=== PATIENT | female | born 1930 | race Caucasian/White ===

== ENCOUNTER 2018-06-12 17:56 | Inpatient (IN) | payer MEDICARE ==
[~2018-06-12] VITALS: Ht 160 cm; Wt 93.9 kg
--- NOTE | ~2018-06-12 | HEMODYNAMI ---
PATIENT:DUC SOLANO MEDICAL RECORD: [id number] : 34 LOCATION:[address] ADMISSION DATE: 06/12/18 Generatedon:06/13/201811:18 Patient name: DUC SOLANO Patient #: [id number] SSN: : 1930 Date of study: 06/13/2018 Page: Of Hemodynamic Procedure Report Patient Data Patient Demographics Procedure consent was obtained First Name: DUC Gender: Female Last Name: RUSS : 1930 Patient #: [id number] Age: 88 year(s) Race: Unknown Additional ID: [id number] Contact details [address]: [address] [place] [address] State: [place] City: [place] Zip code: [address] Past Medical History Allergies: No known allergies Admission Admission Data Admission Date: 06/12/2018 Admission Time: 19:42 Room #: [facility] Weight (lbs.): 207.43 Weight (kg.): 94.09 Procedure Procedure Types Cath Procedure Diagnostic Procedure C [facility] w/Coronaries Sedation Charges Moderate Sedation up to 15 minutes PCI Procedure Coronary Stent Coronary Stent Initial x2 Procedure Description Procedure Date Procedure Date: 06/13/2018 Procedure Start Time: 10:54 Procedure End Time: 11:13 Procedure Staff Name Function Ashok Caballero MD Performing Physician Chris Reyes RT Monitor Kristal Mortensen RN Nurse Karla Collins RT Scrub Procedure Data Cath Procedure Fluoroscopy Diagnostic fluoroscopy Total fluoroscopy Time: 5.2 time: 5.2 min min Diagnostic fluoroscopy Total fluoroscopy dose: dose: 468.54 mGy 468.54 mGy Contrast Material Contrast Material Type Amount (ml) Isovue 300 109 Entry Location Entry Primary Successful Side Size Upsize Upsize Entry Closure Bradley ccessful Closure Location (Fr) 1 (Fr) 2 (Fr) Remarks Device Remarks Radial Right 6 Fr Mechanical artery Short Compression Estimated blood loss: 10 ml Diagnostic catheters Device Type Used For End Catheter Placement DIAGNOSTIC [place] 110cm 5 Procedure Fr catheter ([id number]) Procedure Complications No complications Procedure Medications Medication Administration Route Dosage Oxygen etCO2 Nasal cannula 3 l/min Lidocaine 2% added to field 20 Heparin Flush Bag added to field 2 bags (1000units/500ml NS) 0.9% NaCl I.V. 100 ml/hr Versed I.V. 1 mg Fentanyl I.V. 50 mcg Radial Cocktail I.A. 1 syringe (Verapomil 2mg/Nitro 400mcg/Heparin 1500units) Versed I.V. 1 mg Fentanyl I.V. 50 mcg Versed I.V. 1 mg Heparin Bolus I.V. 4000 units Plavix P.O. 75 mg Hemodynamics Rest Heart Rate: 56 (bpm) Snapshots Pre Cath Intra NCS Post Cath Vital Signs Time Heart Resp SPO2 etCO2 NIBP (mmHg) Rhythm Pain Sedation Rate (ipm) (%) (mmHg) Status Level (bpm) 10:36:13 64 12 91 0 135/75(123) NSR 0 (11) 9(A) , No pain 10:40:31 64 16 92 0 119/74(110) NSR 0 (11) 9(A) , No pain 10:44:57 66 14 95 0 132/73(100) NSR 0 (11) 9(A) , No pain 10:49:30 60 17 94 0 138/73(109) NSR 0 (11) 9(A) , No pain 10:54:02 65 14 92 0 125/79(112) NSR 0 (11) 9(A) , No pain 10:59:18 74 15 94 0 93/64(89) NSR 0 (11) 9(A) , No pain 11:03:36 82 18 94 0 109/65(86) NSR 0 (11) 9(A) , No pain 11:07:58 81 15 94 1.4 118/69(83) NSR 0 (11) 9(A) , No pain 11:12:24 76 16 94 1.4 122/72(95) NSR 0 (11) 9(A) , No pain Medications Time Medication Route Dose Verified Delivered Reason No bernie Effectiveness by by 10:41:43 Oxygen etCO2 3 l/min Ashok Giraldo used for Nasal Federico Mortensen RN procedure cannula 10:41:51 Lidocaine 2% added 20ml Ashok Bailonie for local to vial Federico Mortensen RN anesthetic field 10:42:02 Heparin Flush added 2 bags Ashok Pulido used for Bag to Federico Caballero MD procedure (1000units/500ml field NS) 10:43:44 0.9% NaCl I.V. 100ml/hr Ashok Giraldo Per physician Federico Mortensen RN 10:45:28 Versed I.V. 1 mg Ashok Giraldo for sedation Federico Mortensen RN 10:45:34 Fentanyl I.V. 50 mcg Ashok Giraldo for sedation Federico Mortensen RN 10:51:33 Versed I.V. 1 mg Ashok Giraldo for sedation Federico Mortensen RN 10:51:37 Fentanyl I.V. 50 mcg Ashok Giraldo for sedation Federico Mortensen RN 10:57:26 Radial Cocktail I.A. 1 Ashok Pulido for (Verapomil syringe Federico Caballero MD vasodilation 2mg/Nitro 400mcg/Heparin 1500units) 10:58:25 Versed I.V. 1 mg Ashok Pulido for sedation Federico Caballero MD 11:01:36 Heparin Bolus I.V. 4000 Ashok Giraldo for ve rified units Federico Mortensen RN anticoagulation with dr caballero 11:13:58 Plavix P.O. 75 mg Ashok Giraldo for Federico Mortensen RN antiplatelet therapy Procedure Log Time Note 9:57:53 Time tracking: Regular hours (M-F 7:00 - 5:00) 9:57:55 Kristal Mortensen RN sent for patient. Start room use. 9:58:02 Plan of Care:Hemodynamics will remain stable., Cardiac rhythm will remain stable., Comfort level will be maintained., Respiratory function will remain adequate., Patient/ family verbilizes understanding of procedure., Procedure tolerated without complication., Recovers from procedure without complications.. 10:00:13 Pt was sleeping upon arrival to room, nurse states pt has some confusion noted.Pt was easily arrousable with command. 10:15:26 Patient received from PCU to CCL 3 Alert and oriented. Tansferred to table in Supine position. 10:15:28 Warm blankets applied, and jose armando hugger turned on for patient comfort. 10:15:28 Correct patient and procedure confirmed by team. 10:15:29 Signed procedure consent form obtained from patient. 10:15:30 ECG and BP/O2 sat monitors applied to patient. 10:15:31 Full Disclosure recording started 10:34:55 Vital chart was started 10:34:57 Baseline sample Acquired. 10:35:01 Rhythm: sinus rhythm 10:36:27 H&P Date Dictated: 06/12/2018 Within 30 days and on chart., H&P Addendum completed by physician on day of procedure. (MUST COMPLETE FOR ALL OUTPATIENTS). 10:36:28 Pre-procedure instructions explained to patient. 10:36:29 Pre-op teaching completed and patient verbalized understanding. 10:36:31 Family in patients room. 10:36:32 Patient NPO since Midnight. 10:36:37 Patient allergic to No known allergies 10:36:39 Is the patient allergic to Iodine/contrast media? No. 10:36:40 Is patient on blood thinner?Yes 10:36:42 ACC The patient was administered the following blood thiners within the last 24 hours: ACCPlavix 10:36:44 Patient diabetic? Yes. 10:36:45 If diabetic: On Metformin? No 10:36:47 Previous problem with sedation/anesthesia? No ? 10:36:48 Snore? Yes 10:36:49 Sleep apnea? No 10:36:49 Deviated septum? No 10:36:50 Opens mouth fully? Yes 10:36:52 Sticks out tongue? Yes 10:36:54 Airway obstruction? No ? 10:36:56 Dentures? No ? 10:36:59 Modified Bay's test Ulnar < 7 seconds 10:37:00 Patient pain scale 0/10 ?. 10:37:03 IV patent on arrival in right antecubital with 0.9% NaCl at O. 10:40:11 Lab Result : Creatinine 0.9 mg/dl 10:40:11 Lab Result : BUN 24 mg/dl 10:40:11 Lab Result : Hemoglobin 12.8 g/dl 10:40:11 Lab Result : Hematocrit 38.9 % 10:40:17 Patient Weight : 207.43 lbs 10:40:24 Lab results completed and on chart. 10:40:28 Right Radial & Right Groin area was prepped with chlora-prep and draped in sterile fashion 10:40:28 Alarms reviewed by Makenzie N. 10:40:29 Sharps counted by scrub and verified by R.N. 10:40:30 Use device set Radial Dx or PCI 10:40:31 ACIST Syringe (26522) opened to sterile field. 10:40:36 Medline Cath Pack ([id number]) opened to sterile field. 10:40:37 Bag Decanter (2002S) opened to sterile field. 10:40:38 ACIST Hand Control (01979) opened to sterile field. 10:40:39 ACIST Manifold (40725) opened to sterile field. 10:40:39 Tegaderm 4 x 4 (1626W) opened to sterile field. 10:41:04 DIAGNOSTIC WIRE .035 260cm J wire (360645) opened to sterile field. 10:41:07 SHEATH 6FR Slender (83-9362) opened to sterile field. 10:41:43 Oxygen 3 l/min etCO2 Nasal cannula was administered by Kristal Mortensen RN; used for procedure; 10:41:51 Lidocaine 2% 20ml vial added to field was administered by Kristal Mortensen RN; for local anesthetic; 10:42:02 Heparin Flush Bag (1000units/500ml NS) 2 bags added to field was administered by Ashok Caballero MD; used for procedure; 10:43:44 0.9% NaCl 100ml/hr I.V. was administered by Kristal Mortensen RN; Per physician; 10:44:04 Physician arrived 10:44:04 --------ALL STOP TIME OUT------ 10:44:04 Final Timeout: patient, procedure, and site verified with staff and physician. All members of the team are in agreement. 10:44:06 Right Radial & Right Groin site verified by team. 10:44:09 Physical assessment completed. ASA score P 3 - A patient with severe systemic disease as per Ashok Caballero MD. 10:44:12 Sedation plan: IV Moderate Sedation Medication:Versed, Fentanyl 10:45:23 Zero performed for pressure channel P1 10:45:28 Versed 1 mg I.V. was administered by Kristal Mortensen RN; for sedation; 10:45:34 Fentanyl 50 mcg I.V. was administered by Kristal Mortensen RN; for sedation; 10:51:33 Versed 1 mg I.V. was administered by Kristal Mortensen RN; for sedation; 10:51:37 Fentanyl 50 mcg I.V. was administered by Kristal Mortensen RN; for sedation; 10:54:16 Procedure started. 10:54:20 Local anesthetic to right radial artery with Lidocaine 2% by Ashok Caballero MD.INITIAL ACCESS ONLY 10:56:12 A 6 Fr Short sheath was inserted into the Right Radial artery 10:57:17 A DIAGNOSTIC [place] 110cm 5 Fr catheter (244199) was advanced over the wire and used for Procedure. 10:57:26 Radial Cocktail (Verapomil 2mg/Nitro 400mcg/Heparin 1500units) 1 syringe I.A. was administered by Ashok Caballero MD; for vasodilation; 10:58:21 LV gram done using NIETO 10:58:23 Injector settings: Ml/sec: 5, Volume: 15, 10:58:25 Versed 1 mg I.V. was administered by Ashok Caballero MD; for sedation; 10:58:43 LV hemodynamics recorded. 10:58:47 EF : 50 % 10:58:49 LCA angiography performed. 10:59:50 CHOICE PT Extra Support 182cm wire ([id number]) opened to sterile field. 10:59:51 INFLATOR Merit BasixCompak (RB1867) opened to sterile field. 10:59:57 RCA angiography performed. 11:01:36 Heparin Bolus 4000 units I.V. was administered by Kristal Mortensen RN; for anticoagulation; verified with dr caballero 11:02:29 GUIDE 6FR AR 1.0 SH catheter ([id number]) opened to sterile field. 11:02:30 GUIDE 6FR XBLAD 3.5 catheter ([id number]) opened to sterile field. 11:02:33 Catheter removed. 11:02:42 6 Fr xblad 3.5 guide catheter was inserted over the wire 11:02:51 choice pt es wire advanced. 11:03:07 Wire advanced across lesion. 11:04:28 Place stent Inflation Number: 1 A INTEGRITY RX 2.75 x 14 stent ([id number]) was prepped and advanced across the Prox CX. The stent was deployed at 15 RUSSELL for 0:10 (min:sec). 11:05:09 Stent catheter was removed intact over wire. 11:05:10 Wire removed. 11:05:11 Guide catheter removed. 11:05:17 6 Fr ar 1 sh guide catheter was inserted over the wire 11:06:29 CHOICE PT ES wire advanced. 11:08:26 Inflate balloon Inflation number: 2 A INTEGRITY RX 2.5 x 18 stent ([id number]) was prepped and advanced across the Dist RCA, then inflated to 13 RUSSELL for 0:10 (min:sec). 11:08:39 Stent catheter was removed intact over wire. 11:09:59 Place stent Inflation Number: 1 A INTEGRITY RX 2.5 x 08 stent ([id number]) was prepped and advanced across the Dist RCA. The stent was deployed at 13 RUSSELL for 0:10 (min:sec). 11:11:22 Stent catheter was removed intact over wire. 11:11:23 Wire removed. 11:11:23 Guide catheter removed. 11:11:30 TR BAND Standard ([id number]) opened to sterile field. 11:11:38 Sheath removed intact; hemostasis achieved with Mechanical Compression to the Right Radial artery. 11:11:39 Procedure ended.(Physican Out) 11:12:30 Fluoroscopy time 05.20 minutes. 11:12:36 Fluoroscopy dose: 468.54 mGy 11:12:36 Flurop Dose total: 468.54 11:12:40 Contrast amount:Isovue 300 109ml. 11:12:41 Sharps counted by scrub and verified by R.N. 11:12:43 TR band inflated with 13cc of air. 11:12:44 Insertion/operative site no bleeding no hematoma. 11:12:52 Post right radial artery:stable, soft, clean and dry 11:12:52 Post Procedure Pulses reassessed and unchanged 11:12:56 Post-procedure physical assessment completed. ASA score P 3 - A patient with severe systemic disease as per Ashok Caballero MD. 11:12:59 Post procedure rhythm: unchanged. 11:13:01 Estimated blood loss: 10 ml 11:13:08 Patient needs reinforcement of post procedure teaching. 11:13:26 Procedure type changed to Cath procedure, Diagnostic procedure, LHC, LHC w/Coronaries, Sedation Charges, Moderate Sedation up to 15 minutes, PCI procedure, Coronary Stent, Coronary Stent Initial x2 11:13:46 Procedure and supply charges have been captured, reviewed, submitted and are correct. 11:13:48 Procedure Complication : No complications 11:13:49 Vital chart was stopped 11:13:50 See physician's report for complete and final results. 11:13:51 Report given to PCU. 11:13:53 Patient transfered to PCU with Stretcher. 11:13:55 Procedure ended. 11:13:55 Full Disclosure recording stopped 11:13:58 Plavix 75 mg P.O. was administered by Kristal Mortensen RN; for antiplatelet therapy; 11:14:03 End room use (Document Last) Intervention Summary Intervention Notes Time ActionType Lesion and Equipment Action# Pressure Duration Attributes Used 11:04:28 Place stent Prox CX INTEGRITY RX 1 15 00:10 2.75 x 14 stent ([id number]) 11:08:26 Inflate Dist RCA INTEGRITY RX 2 13 00:10 balloon 2.5 x 18 stent ([id number]) 11:09:59 Place stent Dist RCA INTEGRITY RX 1 13 00:10 2.5 x 08 stent ([id number]) Device Usage Item Name Manufacture Quantity Catalog Number Hospital Part Current Mini mal Lot# / Charge Number Stock Stock Serial# Code ACIST Acist 1 95212 380734 562083 389417 20 Syringe Medical (13475) Systems Inc Medline Cath Medline 1 [id number] 780520 97702 798762 5 Pack ([id number]) Bag Decanter Microtek 1 2001S 441514 10323 090774 5 (2001S) Medical Inc. ACIST Hand Acist 1 63791 454844 428873 680746 5 Control Medical (52653) Systems Inc ACIST Acist 1 39677 125401 262582 241170 5 Manifold Medical (93214) Systems Inc Tegaderm 4 x 3M 1 1626W 246198 727539 436934 5 4 (1626W) DIAGNOSTIC St Max 1 251042 967756 432313 508146 30 WIRE .035 260cm J wire (915906) SHEATH 6FR Terumo 1 [id number] 668451 774663 800722 5 Slender (80-1060) DIAGNOSTIC Terumo 1 40-0595 537484 291140 975622 5 [place] 110cm 5 Fr catheter (317239) CHOICE PT [place] 1 [id number] 172107 561992 168317 5 Extra Scientific Support 182cm wire ([id number]) INFLATOR Merit 1 CC4598 696747 035555 710699 15 [facility] Medical BasixCompak (MM5919) GUIDE 6FR AR Medtronic 1 [id number] 265030 38568 431724 1 1.0 SH catheter ([id number]) GUIDE 6FR Cardinal 1 01122059 547347 582260 091059 10 XBLAD 3.5 Health catheter (06107435) INTEGRITY RX Medtronic 1 [id number] 774072 057281 413858 5 [id number] 2.75 x 14 stent ([id number]) INTEGRITY RX Medtronic 1 [id number] 732833 166668 844776 5 [id number] 2.5 x 18 stent ([id number]) INTEGRITY RX Medtronic 1 [id number] 016979 388452 562821 5 [id number] 2.5 x 08 stent ([id number]) TR BAND Terumo 1 SEX80-CBE 809729 530270 278889 40 Standard ([id number]) Signature Audit [place]in[place] Stage Time Signature Unsigned Intra-Procedure 06/13/2018 Chris Reyes 11:18:15 AM RT(R) Signatures Monitor : Chris Reyes RT Signature : Date : Time : [place] [id number] [facility] [place] [address]
[2018-06-12 19:02] LABS: BASOPHILS 0.2 % (0-2); EOSINOPHILS 2.7 % (0-7); HEMATOCRIT 38.9 % (36.0-48.0); HEMOGLOBIN 12.8 g/dL (12-16); MCH 30.5 pg (26.0-34.0); MCHC 32.9 g/dL (31.0-37.0); MCV 92.6 fL (80.0-100.0); MEAN PLATELET VOLUME 9.7 fL (7.4-10.4); MONOCYTES 11.5 % (2-11); NEUTROPHILS 62.6 % (40-80); PLATELET COUNT 147 10x3/uL (130-400); RDW 13.4 % (11.5-14.5); WBC 5.5 10x3/uL (4.8-10.8)
[2018-06-12 19:20] LABS: ALBUMIN 3.3 g/dL (3.4-5.0); ALKALINE PHOSPHATASE 69 U/L (46-116); ALT (SGPT) 29 U/L (10-68); BILIRUBIN - TOTAL 0.42 mg/dL (0.2-1.3); CALC OSMOLALITY 282 mosm/kg (275-300); CALCIUM 8.3 mg/dL (8.5-10.1); CARBON DIOXIDE 27.5 mmol/L (21.0-32.0); CHLORIDE - SERUM 105 mmol/L (98-107); CREATININE - SERUM 0.9 mg/dL (0.6-1.3); GLUCOSE 98 mg/dL (74-106); POTASSIUM - SERUM 3.7 mmol/L (3.5-5.1); SODIUM 140 mmol/L (136-145); UREA NITROGEN 24 mg/dL (7-18); eGFR NON AFRICAN AMERICAN 63 mL/min (90-120)
[2018-06-12 19:34] LABS: CKMB 1.1 U/L (0.0-3.6); CREATINE KINASE 82 UL (21-215); PRO BNP 210 pg/mL (0-450); TROPONIN-I 0.034 ng/mL (0.000-0.060)
[2018-06-12 20:32] LABS: APPEARANCE CLEAR (CLEAR); BILIRUBIN NEGATIVE (NEGATIVE); COLOR YELLOW (YELLOW); GLUCOSE NEGATIVE (NEGATIVE); KETONE NEGATIVE (NEGATIVE); NITRITE NEGATIVE (NEGATIVE); PROTEIN NEGATIVE (NEGATIVE); SPECIFIC GRAVITY 1.025 (1.005-1.020); UROBILINOGEN NORMAL (NORMAL)
[2018-06-12] MEDS ORDERED: VITAMIN B-122500 MCG PO (22:33)
[2018-06-12] MEDS ORDERED: VITAMIN D3400 UNI1 PO (22:34)
[2018-06-12] MEDS ORDERED: ALDACTONE25 MG PO (22:34)
[2018-06-12] MEDS ORDERED: ACULAR 0.5 % OPH5 ML RIGHT EYE (22:35)
[2018-06-12] MEDS ORDERED: COREG12.5 MG PO (22:36)
[2018-06-12] MEDS ORDERED: OMEPRAZOLE20 M1 PO (22:36)
[2018-06-12] MEDS ORDERED: FISH OIL 1,0001 CA1 PO (22:37)
[2018-06-12] MEDS ORDERED: NEURONTIN 300300 MG PO (22:37)
[2018-06-12] MEDS ORDERED: METOPROLOL TART25 MG PO (22:38)
[2018-06-12] MEDS ORDERED: SYNTHROID125 MCG PO (22:40)
[2018-06-12] MEDS ORDERED: COZAAR100 MG PO (22:41)
[2018-06-12] MEDS ORDERED: PLAVIX75 MG PO (22:42)
[2018-06-12] MEDS ORDERED: VITAMIN B-121000 MCG SUBD (22:43)
[2018-06-12] MEDS ORDERED: ZOLOFT100 MG PO (22:44)
[2018-06-12 23:17] VITALS: BP 157/82; BMI 33.7
--- NOTE | 2018-06-12 23:40 | NUR ---
NEW ADMISSION ARRIVED FROM ER. LETHARGIC DOES WAKE UP BUT NOT FOR LONG PERIODS OF TIME. WHEN PATIENT IS AWAKE SHE IS VERY COMFUSED. DAUGTHER AT BEDSIDE. RESPIRATIONS ARE EVEN AND UNLABORED. NO S/S OF DISTRESS. NO C/O PAIN. WILL CPOC.
[2018-06-13] VITALS: BP 131/86
--- NOTE | 2018-06-13 00:12 | NUR ---
PATIENT REFUSED EKG.
[2018-06-13 00:36] LABS: CKMB 1.4 U/L (0.0-3.6); TROPONIN-I 0.036 ng/mL (0.000-0.060)
[2018-06-13 00:37] LABS: CREATINE KINASE < 21 UL (21-215)
[2018-06-13 04:00] VITALS: BP 124/68
[2018-06-13 06:26] LABS: BASOPHILS 0.2 % (0-2); EOSINOPHILS 2.5 % (0-7); HEMATOCRIT 37.7 % (36.0-48.0); HEMOGLOBIN 12.3 g/dL (12-16); IMMATURE GRANULOCYTES 0.2 % (0-5); LYMPHOCYTES 15.3 % (15-50); MCH 29.9 pg (26.0-34.0); MCHC 32.6 g/dL (31.0-37.0); MCV 91.7 fL (80.0-100.0); MEAN PLATELET VOLUME 9.7 fL (7.4-10.4); MONOCYTES 9.3 % (2-11); NEUTROPHILS 72.5 % (40-80); PLATELET COUNT 138 10x3/uL (130-400); RBC 4.11 10x6/uL (4.00-5.40); RDW 13.5 % (11.5-14.5); WBC 4.7 10x3/uL (4.8-10.8)
[2018-06-13 06:59] LABS: ALBUMIN 3.1 g/dL (3.4-5.0); ALKALINE PHOSPHATASE 64 U/L (46-116); ALT (SGPT) 28 U/L (10-68); BILIRUBIN - TOTAL 0.41 mg/dL (0.2-1.3); CALC OSMOLALITY 289 mosm/kg (275-300); CALCIUM 8.5 mg/dL (8.5-10.1); CARBON DIOXIDE 26.4 mmol/L (21.0-32.0); CHLORIDE - SERUM 108 mmol/L (98-107); CKMB 1.4 U/L (0.0-3.6); CREATINE KINASE 105 UL (21-215); CREATININE - SERUM 0.9 mg/dL (0.6-1.3); GLUCOSE 98 mg/dL (74-106); POTASSIUM - SERUM 3.9 mmol/L (3.5-5.1); PROTEIN - SERUM 6.5 g/dL (6.4-8.2); SODIUM 144 mmol/L (136-145); TROPONIN-I 0.038 ng/mL (0.000-0.060); UREA NITROGEN 20 mg/dL (7-18); eGFR NON AFRICAN AMERICAN 63 mL/min (90-120)
--- NOTE | 2018-06-13 07:20 | NUR ---
ASSESSMENT DONE. DENIES NEEDS.
[2018-06-13 08:08] VITALS: BP 146/58
--- NOTE | 2018-06-13 10:10 | NUR ---
TO GAME PROTECTOR PER BED
--- NOTE | 2018-06-13 10:14 | NUR ---
RESTS IN BED WITH EYES CLOSED. FAMILY MEMBER AT BS. CALL LIGHT IN REACH.
[2018-06-13 12:56] VITALS: Ht 160 cm; Wt 93.9 kg
--- NOTE | 2018-06-13 13:18 | MORECARE ---
CASE MANAGEMENT DISCHARGE SUMMARY PATIENT: DUC SOLANO UNIT: [id number] ADM DATE: 06/12/18 AGE: 88 : 32 SEX: F ROOM/BED: D.2120 AUTHOR: LYNETTE VASQUEZ PHYSICIAN: REFERRING PHYSICIAN: DICK ROSADO MD DATE OF SERVICE: 06/13/18 Discharge Plan Patient Name: DUC SOLANO Facility: [facility]:[place] : 1930 Planned Disposition: Anticipated Discharge Date: Discharge Date: Expected LOS: Initial Reviewer: [email or web address] Initial Review Date: 06/12/2018 Generated: 06/13/18 2:18 pm Patient Name: DUC SOLANO Page 98365 at 1318 All edits/amendments must be made on the electronic document DICTATION DATE: 06/13/18 1317 NON ACOUSTIC OPERATOR: GABRIELLE 06/13/18 1317 RPT#: [id number] DC DATE: STATUS: ADM IN [facility] [address] [place] [address] END OF REPORT
--- NOTE | 2018-06-13 16:13 | MORECARE ---
CASE MANAGEMENT DISCHARGE SUMMARY PATIENT: DUC SOLANO UNIT: [id number] ADM DATE: 06/12/18 AGE: 88 : 32 SEX: F ROOM/BED: D.2120 AUTHOR: LYNETTE VASQUEZ PHYSICIAN: REFERRING PHYSICIAN: DICK ROSADO MD DATE OF SERVICE: 06/13/18 Discharge Plan Patient Name: DUC SOLANO Facility: [facility]:[place] : 1930 Planned Disposition: Home with Home Health Anticipated Discharge Date: 06/06/18 Discharge Date: Expected LOS: -6 Initial Reviewer: [email or web address] Initial Review Date: 06/12/2018 Generated: 06/13/18 5:13 pm Last DP export: 06/13/18 12:18 p Patient Name: DUC SOLANO Page 53639 at 1613 All edits/amendments must be made on the electronic document DICTATION DATE: 06/13/181612 [employer]CHO[employer] REGISTRAR: GABRIELLE 06/13/18 161 RPT#: [id number] DC DATE: STATUS: ADM IN [facility] [address] [place] [address] END OF REPORT
[2018-06-13 16:14] VITALS: BP 121/58
--- NOTE | 2018-06-13 16:20 | MORECARE ---
CASE MANAGEMENT DISCHARGE SUMMARY PATIENT: DUC SOLANO UNIT: [id number] ADM DATE: 06/12/18 AGE: 88 : 32 SEX: F ROOM/BED: D.2120 AUTHOR: LYNETTE VASQUEZ PHYSICIAN: REFERRING PHYSICIAN: DICK ROSADO MD DATE OF SERVICE: 06/13/18 Discharge Plan Patient Name: DUC SOLANO Facility: [facility]:[place] : 1930 Planned Disposition: Home with Home Health Anticipated Discharge Date: 06/06/18 Discharge Date: Expected LOS: -6 Initial Reviewer: [email or web address] Initial Review Date: 06/12/2018 Generated: 06/13/18 5:20 pm DCPIA - Discharge Planning Initial Assessment Updated by [email or web address]: Matt Yang on 06/13/18 4:15 pm * Is the patient Alert and Oriented? Yes * How many steps to enter\exit or inside your home? NONE * PCP DR. SOPHIE VELÁSQUEZ , [place], [place]. * Pharmacy [facility] * Preadmission Environment Home with Family * ADLs Independent * Equipment Back Brace Cane Walker Wheelchair * Other Equipment [facility] [place]. MEDICAL EQUIPMENT PROVIDER * List name and contact numbers for known caregivers / representatives who currently or will assist patient after discharge: SUE GOLD, JESSICAR, * Verbal permission to speak to the caregivers and representatives has been obtained from the patient. Yes * Community resources currently utilized Home Health * Please name any agencies selected above. [facility] - [phone] * Additional services required to return to the preadmission environment? No * Can the patient safely return to the preadmission environment? Yes * Has this patient been hospitalized within the prior 30 days at any hospital? No Last DP export: 06/13/18 3:13 p Patient Name: DUC SOLANO Page 83561 at 1620 All edits/amendments must be made on the electronic document DICTATION DATE: 06/13/18 1620 COFFEE ROASTER HELPER: GABRIELLE 06/13/18 1620 RPT#: [id number] DC DATE: STATUS: ADM IN [facility] [address] [place] [address] END OF REPORT
--- NOTE | 2018-06-13 16:28 | MORECARE ---
CASE MANAGEMENT DISCHARGE SUMMARY PATIENT: DUC SOLANO UNIT: [id number] ADM DATE: 06/12/18 AGE: 88 : 32 SEX: F ROOM/BED: D.7950 AUTHOR: PEDRO,DOC PHYSICIAN: REFERRING PHYSICIAN: DICK ROSADO MD DATE OF SERVICE: 06/13/18 Discharge Plan Patient Name: DUC SOLANO Facility: [facility]:[place] : 1930 Planned Disposition: Home with Home Health Anticipated Discharge Date: 06/06/18 Discharge Date: Expected LOS: -6 Initial Reviewer: [email or web address] Initial Review Date: 06/12/2018 Generated: 06/13/18 5:28 pm Comments DCP- Discharge Planning Updated by [email or web address]: Matt Yang on 06/13/18 3:[address] Patient Name: DUC SOLANO Admission Status: ER Accout number: [id number] Admission Date: 06-12-2018 : 1930 Admission Diagnosis: Attending: ALONZO, Current LOS: 1 Anticipated DC Date: 06-06-2018 Planned Disposition: Home with Home Health Primary Insurance: MEDICARE A & B PLANNED EXTERNAL PROVIDER: Discharge Planning Comments: CM MET WITH PT IN ROOM TO DISCUSS DISCHARGE PLANNING AND NEEDS.DUC SOLANO provided verbal consent to discuss current and ongoing needs with/in the presence of: DAUGHTERSUE. DAUGHTER REPORTS PT LIVING AT HOME INDEPENDENTLY; SUE, DAUGHTER, LIVES WITH PT. PT HAS BEDSIDE COMMODE, CANE, WALKER AND WHEELCHAIR FROM [facility]. PT HAS HOME HEALTH WITH [facility].CM DISCUSSED AVAILABILITY OF HOME HEALTH, REHAB SERVICES AND MEDICAL EQUIPMENT. PT DENIES DISCHARGE NEEDS OTHER THAN HOME HEALTH RESUMPTION, DAUGHTER IS HERE TO TAKE PT HOME AT DISCHARGE. DAUGHTER ASKED TO BE DISCHARGED SOON POSSIBLE THEY LIVE HOURS AWAY. DAUGHTER CONCERNED PT MAY NEED OXYGEN FOR DISCHARGE. CM SPOKE TO BEDSIDE NURSE WHO INFORMED CM THAT PT DOES NOT REQUIRE OXYGEN FOR DISCHARGE. CM CALLED [facility], , SPOKE TO FELIPE WHO VERIFIED PT ACTIVE WITH THEM, THEY WERE NOT AWARE PT WAS IN HOSPITAL, ASKED FOR DISCHARGE AND HOSPITAL TREATMENT INFORMATION BE FAXED FOR RESUMPTION OF CARE. CM FAXED REQUESTED INFORMATION TO [facility] AT [phone]. Online User Experience Strategist: Matt Yang DCPIA - Discharge Planning Initial Assessment Updated by [email or web address]: Matt Yang on 06/13/18 4:15 pm * Is the patient Alert and Oriented? Yes * How many steps to enter\exit or inside your home? NONE * PCP DR. SOHPIE VELÁSQUEZ , [place], [place]. * Pharmacy [facility], [place] * Preadmission Environment Home with Family * ADLs Independent * Equipment Back Brace Cane Walker Wheelchair * Other Equipment [facility] [place] [place] MEDICAL EQUIPMENT PROVIDER * List name and contact numbers for known caregivers / representatives who currently or will assist patient after discharge: SUE GOLD DTR, * Verbal permission to speak to the caregivers and representatives has been obtained from the patient. Yes * Community resources currently utilized Home Health * Please name any agencies selected above. [facility] - [phone] * Additional services required to return to the preadmission environment? No * Can the patient safely return to the preadmission environment? Yes * Has this patient been hospitalized within the prior 30 days at any hospital? No External Providers External Provider: OTHER-OTHER Next Contact Date: 06/13/2018 Service Request Date: Service Type: Resolution: Reviewer: Comments: Last DP export: 06/13/18 3:20 p Patient Name: DUC SOLANO Page 25148 at 1628 All edits/amendments must be made on the electronic document DICTATION DATE: 06/13/181627 PSYCHOSOCIAL REHABILITATION COUNSELOR: GABRIELLE 06/13/181627 RPT#: [id number] DC DATE: STATUS: ADM IN [facility] [address] [place] [address] END OF REPORT
--- NOTE | 2018-06-13 16:59 | NUR ---
WITHOUT CHANGES OR DISRESS NOTED AT THIS TIME.
--- NOTE | 2018-06-13 18:34 | NUR ---
DC GIVEN WITH RX TO DAUGHTER
--- NOTE | 2018-06-13 18:50 | NUR ---
DC HOME PER PERSONIAL CAR
--- NOTE | 2018-06-14 18:15 | OP ---
PATIENT NAME: DUC SOLANO MEDICAL RECORD: [id number] :34 LOCATION:D.M2 D.2120 ADMISSION DATE:06/12/18 SURGEON: KEY MELLO MD DATE OF OPERATION: 06/13/2018 PROCEDURES: 1. PTCA stent left circumflex. 2. PTCA stent RCA. 3. Left heart catheterization. 4. Selective coronary angiography. 5. Left ventriculogram. INDICATION: Unstable angina, acute coronary syndrome. DESCRIPTION OF PROCEDURE: After informed consent was obtained and after a detailed description of the risks, benefits as well as alternative therapies, the patient elected to proceed with angiogram and angioplasty. The right radial area was prepped and draped in normal sterile fashion. Right radial artery was cannulated via modified Seldinger technique with placement of 6-Mongolian sheath. All catheters exchanged through this sheath. FINDINGS: The left ventriculogram was performed in standard 30-degree NIETO view, reveals good cardiac wall motion throughout all segments. Overall ejection fraction estimated 60%. SELECTIVE CORONARY ANGIOGRAPHY: 1. Left main is with no significant angiographic disease. 2. Left anterior descending has mild irregularities, but no flow-limiting stenosis. 3. The left circumflex has 80% stenosis proximally. 4. Right coronary has 80% stenosis distally. PTCA STENT OF THE LEFT CIRCUMFLEX: The stent used 2.75 x 15 mm Integrity. Result was 0% residual stenosis. PTCA STENT OF THE RCA: Stents used were 2.5 x 18 and 2.5 x 8, both Integrity stents. Result was 0% residual stenosis. OVERALL IMPRESSION: Successful percutaneous transluminal coronary angioplasty stent of the left circumflex and RCA, both going from 80% initial stenosis to 0% residual. TRANSINT:[id number] Voice Confirmation ID: [id number] DOCUMENT ID: [id number] KEY MELLO MD at 1815 CC: [id number] DICTATION DATE: 06/13/18 1116 YARD ASSISTANT: 06/13/18 1157 DIS IN 06/13/18 [facility] [address] [id number]
== END 2018-06-13 18:50 | disposition home health service (06) | DRG 248 ==
LOC: D.ER 17:56 → D.M2 19:42
PROVIDERS: Family Medicine; Internal Medicine Interventional Cardiology; ADMIT Family Medicine
PROC: B2111ZZ Fluoroscopy of Multiple Coronary Arteries using Low Osmolar Contrast (ICD-10-PCS; 2018-06-13)
PROC: B2151ZZ Fluoroscopy of Left Heart using Low Osmolar Contrast (ICD-10-PCS; 2018-06-13)
PROC: 02713FZ Dilation of Coronary Artery, Two Arteries with Three Intraluminal Devices, Percutaneous Approach (ICD-10-PCS; principal; 2018-06-13 11:00)
PROC: 4A023N7 Measurement of Cardiac Sampling and Pressure, Left Heart, Percutaneous Approach (ICD-10-PCS; 2018-06-13 11:00)
DX: I21.4 Non-ST elevation (NSTEMI) myocardial infarction (principal); R40.2120 Coma scale, eyes open, to pain, unspecified time; I25.110 Atherosclerotic heart disease of native coronary artery with unstable angina pectoris; I10 Essential (primary) hypertension; Z72.820 Sleep deprivation; E78.5 Hyperlipidemia, unspecified; F43.0 Acute stress reaction; Z86.73 Personal history of transient ischemic attack (TIA), and cerebral infarction without residual deficits; R40.2350 Coma scale, best motor response, localizes pain, unspecified time; R40.2240 Coma scale, best verbal response, confused conversation, unspecified time